=== PATIENT | male | born 1955 | race Two or more races ===

== ENCOUNTER 2018-10-09 21:55 | Emergency (ER) | payer MEDICAID ==
[~2018-10-09] VITALS: Ht 165.1 cm; Wt 74.8 kg
[2018-10-09] MEDS ORDERED: ONDANSETRON ODT 4 MG TAB PO ONE ×2 (22:14→22:15)
[2018-10-09 22:44] LABS: Basophils # (auto) 0.1 uL; Basophils % (auto) 0.8 % (0.0-2.0); Eosinophils # (auto) 0 uL; Eosinophils % (auto) 0.1 % (0.0-7.0); Hematocrit 41.5 % (41.0-53.0); Hemoglobin 14.3 g/dL (13.5-17.5); Lymphocytes # (auto) 2.1 uL; Lymphocytes % (auto) 23.7 % (10.0-50.0); Mean Corpuscular Hemoglobin 31.6 pg (28.0-32.0); Mean Corpuscular Hgb Conc. 34.5 g/dL (32.0-36.0); Mean Corpuscular Volume 91.5 fL (80.0-100.0); Monocytes # (auto) 0.7 uL; Monocytes % (auto) 7.5 % (0.0-12.0); Neutrophils % (auto) 67.9 % (37.0-80.0); Nucleated Red Blood Cells % 0.1 %; Platelet Count (auto) 316 10^3/uL (140-450); Red Blood Cells 4.53 10^6/uL (4.5-5.90); Red Cell Distribution Width 13.2 % (11.8-14.3); White Blood Cell 8.9 10^3/uL (4.4-10.8)
[2018-10-09 23:03] LABS: Potassium 3.7 mmol/L (3.5-5.1)
[2018-10-09 23:07] LABS: Albumin 4.4 g/dL (3.4-5.0); BUN/Creatinine Ratio 5.3; Calcium 9.6 mg/dL (8.5-10.1)
[2018-10-09 23:18] LABS: Bilirubin, Total 0.8 mg/dL (0.2-1.0); Total Protein 8.1 g/dL (6.4-8.2)
[2018-10-09] MEDS ORDERED: ONDANSETRON HCL 4 MG/2 ML VIAL IV ONE (23:45)
[2018-10-10] MEDS ORDERED: ONDANSETRON HCL 4 MG/2 ML VIAL IV ONE ×2 (00:45→03:00)
[2018-10-10] MEDS ORDERED: SODIUM CHLORIDE 0.9% 1,000 ML IV ONE (01:00)
[2018-10-10 01:23] LABS: Amylase 186 U/L (25-115); Lipase 264 U/L (73-393)
[2018-10-10 01:33] LABS: Urine Bacteria FEW /hpf (None Seen); Urine Blood 1+ /uL (Negative); Urine Mucus FEW (None Seen); Urine Specific Gravity 1.027 (1.001-1.035); Urine Sperm PRESENT /hpf (None Seen); Urine WBC 4 /hpf (0 - 3)
[2018-10-10 02:00] VITALS: BP 127/80
[2018-10-10] MEDS ORDERED: ONDANSETRON ODT 4 MG TAB PO ONE (03:00)
== END 2018-10-10 02:57 | disposition home or self-care (01) ==
LOC: ER 21:58
DX: K52.9 Noninfective gastroenteritis and colitis, unspecified (principal)
CPT/HCPCS: 36415; 74176; 80053; 81001; 82150; 83690; 85025; 93005; 96361; 96374; 96376; 99284; J2405; J7030; Q0162